=== PATIENT | female | born 1980 | race American Indian/Alaskan Native ===

== ENCOUNTER 2016-03-30 02:15 | Emergency (ER) | payer MEDICARE ==
[2016-03-30 02:55] LABS: Hematocrit 40.2 % (30.3-42.9); Hemoglobin 13.1 gm/dl (10.1-14.3); Mean Corpuscular HGB Conc 33 % (30-34); Mean Corpuscular Hemoglobin 29 pg (28-32); Mean Corpuscular Volume 88 fl (79-97); Platelet Count 256 K/mm3 (140-440); Red Blood Count 4.58 M/mm3 (3.65-5.03); Red Cell Distribution Width 12.8 % (13.2-15.2); White Blood Count 7.2 K/mm3 (4.5-11.0)
[2016-03-30 03:23] LABS: Anion Gap 16 mmol/L; Blood Urea Nitrogen 14 mg/dL (7-17); Calcium 9.1 mg/dL (8.4-10.2); Carbon Dioxide 25 mmol/L (22-30); Chloride 100.7 mmol/L (98-107); Glucose 100 mg/dL (65-100); Potassium 4.1 mmol/L (3.6-5.0); Sodium 138 mmol/L (137-145)
[2016-03-30 04:17] LABS: Anisocytosis 1+; Blastocytes % (Manual) 0 %; Eosinophils % (Manual) 0 % (0.0-4.3); Hypochromasia 1+
[2016-03-30 04:18] LABS: Diff Status Complete
[2016-03-30] MEDS ORDERED: TORADOL IM ONE (08:51)
[2016-03-30] MEDS ORDERED: NORCO 5/325 PO ONE (08:51)
--- NOTE | 2016-03-30 08:54 | Emergency Department Report ---
HPI - General Chief Complaint: Chest Pain Time Seen by Provider: 03/30/16 08:11 - HPI HPI: This is a 35-year-old Afro-[place] female who presents to the emergency department with a complaint of a few days of some cold-like symptoms that include chills, productive cough and chest congestion and then some midsternal chest pain that began this morning. The chest discomfort is the reason she came in to be seen today. She denies any past medical history. She has not taken anything for symptoms prior to presentation. No recent travel or sick contacts at home. She does not have a primary care doctor. She denies tobacco or illicit drug use or abuse. The chest pain worsens with certain movements of her torso and chest. She denies any family history of early cardiac disease or . ED Past Medical Hx - Past Medical History Previous Medical History?: Yes Hx Hypertension: Yes Additional medical history: HIGH CHOLESTEROL. ULCERATIVE COLITIS - Surgical History Past Surgical History?: No - Social History Smoking Status: Never Smoker Substance Use Type: None - Medications Home Medications: Home Medications Medication Instructions Recorded Confirmed Last Taken Type Amoxicillin/K Clav Tab [Augmentin 1 tab PO Q12HR #20 tab 06/08/15 Unknown Rx 875MG TAB] Ibuprofen [Motrin 800 MG tab] 800 mg PO Q8HR PRN #30 tablet 06/08/15 Unknown Rx Benzonatate [Tessalon Perles] 100 mg PO Q8HR PRN #20 capsule 03/30/16 Unknown Rx HYDROcodone/APAP 5-325 [Drummond 1 each PO Q6HR PRN #10 tablet 03/30/16 Unknown Rx 5/325] ED Review of Systems ROS: Stated complaint: CHEST PAIN/COUGH Other details as noted in HPI Comment: All other systems reviewed and negative Constitutional: chills. denies: weakness Eyes: denies: eye pain, eye discharge, vision change ENT: denies: ear pain, throat pain Respiratory: cough. denies: shortness of breath Cardiovascular: chest pain. denies: edema Gastrointestinal: denies: abdominal pain, nausea, diarrhea Genitourinary: denies: urgency, dysuria, discharge Musculoskeletal: denies: back pain, joint swelling, arthralgia Skin: denies: rash, lesions Neurological: denies: headache, weakness, paresthesias Physical Exam - Physical Exam Vital Signs: Vital Signs 03/30/16 02:33 Temperature 98.1 F Pulse Rate 77 Respiratory 18 Rate Blood Pressure 130/94 O2 Sat by Pulse 99 Oximetry Physical Exam: GENERAL: The patient is well-developed well-nourished. HEENT: Normocephalic. Atraumatic. Extraocular motions are intact. Patient has moist mucous membranes. Pupils equal reactive to light bilaterally. NECK: Supple. Trachea is midline. CHEST/LUNGS: Clear to auscultation. There is no respiratory distress noted. Chest pain is reproducible to palpation of chest wall. No cough heard during examination. HEART/CARDIOVASCULAR: Regular. There is no tachycardia. There is no gallop rub or murmur. ABDOMEN: Abdomen is soft, nontender. Patient has normal bowel sounds. There is no abdominal distention. SKIN: There is no rash. There is no edema. There is no diaphoresis. NEURO: The patient is awake, alert, and oriented. The patient is cooperative. The patient has no focal neurologic deficits. The patient has normal speech. MUSCULOSKELETAL: There is no tenderness or deformity. There is no limitation range of motion. There is no evidence of acute injury. ED Course Vital Signs 03/30/16 02:33 Temperature 98.1 F Pulse Rate 77 Respiratory 18 Rate Blood Pressure 130/94 O2 Sat by Pulse 99 Oximetry ED Medical Decision Making - Lab Data Result diagrams: 03/30/16 02:42 03/30/16 02:42 - EKG Data -: EKG Interpreted by [place] EKG shows normal: sinus rhythm, axis, intervals, QRS complexes, ST-T waves Rate: normal - EKG Data When compared to previous EKG there are: previous EKG unavailable Interpretation: normal EKG - Radiology Data Radiology results: image reviewed interpreted by me: Chest x-ray did not show any acute process. Heart is normal shape and size. No effusions. No pneumothorax. No signs of pneumonia seen.t - Medical Decision Making 35-year-old female presents with a few days of cold-like symptoms and a one day history of some midsternal chest pain. Patient does not have any risk factors for coronary artery disease. She has a BLAKE score of 0-1 depending on whether her chest discomfort is considered angina. EKG is normal without any ST elevation CO, ischemia or dysrhythmia. Chest x-ray does not show any pneumonia , pleural effusions or any acute process. Patient's labs are unremarkable including negative troponins 3. Is negative on the pulmonary embolism rule out criteria and low on the well's score criteria. She'll be discharged home to follow-up with her primary care doctor, Dr. Reece. She will be given a prescription for some pain medication and a antitussives. She will return to the ER with any worsening of her symptoms or any acute distress. - Differential Diagnosis viral syndrome, URI, bronchitis, costochondritis, CO Critical Care Time: No Critical care attestation.: If time is entered above; I have spent that time in minutes in the direct care of this critically ill patient, excluding procedure time. ED Disposition Clinical Impression: Costochondritis Upper respiratory infection Qualifiers: URI type: unspecified URI Qualified Code(s): J06.9 - Acute upper respiratory infection, unspecified Disposition: DISCHARGED TO HOME OR SELFCARE Is pt being admited?: No Condition: Stable Instructions: Chest Pain (ED), Costochondritis (ED), Upper Respiratory Infection (ED) Additional Instructions: Please follow-up with your primary care doctor the next few days. Return to the emergency department with any worsening of your symptoms or any acute distress. You've been prescribed a medication that is sedating. Therefore this medication cannot be mixed with alcohol, or taken prior to driving, working, or being responsible for children. Prescriptions: Benzonatate [Tessalon Perles] 100 mg PO Q8HR PRN #20 capsule PRN Reason: Cough HYDROcodone/APAP 5-325 [Drummond 5/325] 1 each PO Q6HR PRN #10 tablet PRN Reason: Pain Referrals: PRIMARY CARE, [Primary Care Provider] - 3-5 Days Time of Disposition: 10:26
--- NOTE | 2016-03-30 09:04 | XRay Report ---
Chest 2 views: History: Cough. Findings: Normal cardiomediastinal silhouette. Trachea is midline. No consolidation, pneumothorax or pleural effusion. Impression: No acute cardiopulmonary findings. The distal when compared to
[2016-03-30 09:49] LABS: Eosinophils % (Auto) 0.2 % (0.0-4.3)
[2016-03-30 10:42] VITALS: BP 136/75
== END 2016-03-30 10:49 | disposition home or self-care (01) ==
LOC: ED 02:15
DX: M94.0 Chondrocostal junction syndrome [Tietze] (principal); J06.9 Acute upper respiratory infection, unspecified; I10 Essential (primary) hypertension; E78.00 Pure hypercholesterolemia, unspecified
CPT/HCPCS: 36415; 71020; 80048; 84484; 85007; 85025; 93005; 93010; 99285; J1885